=== PATIENT | male | born 1950 | race Caucasian/White ===

== ENCOUNTER 2019-08-20 15:47 | Emergency (ER) | payer OTHER, SELFPAY ==
[2019-08-20 15:53] VITALS: BP 142/92; PULSE 70; RESP 18; TEMP 36.9; O2SAT 100
--- NOTE | 2019-08-20 16:24 | ED.URI ---
HPI - URI/Sore Throat General Chief Complaint: Upper Respiratory Infection Stated Complaint: COLD/FLU Time Seen by Provider: 08/20/19 16:12 Source: patient Mode of arrival: ambulatory Limitations: no limitations History of Present Illness HPI Narrative: 69-year-old male presents for evaluation of symptoms that have been present for 6 days. He reports initial rhinorrhea, congestion, dry cough, body aches, sore throat. He reports over the last few days his congestion, facial pressure and pain has worsened. He reports cough is dry, nonproductive and has not keeping him up at night. He denies any fever. He denies any wheezing, shortness of breath, chest pain, rash, abnormal swelling. He is used Advil, Coricidin for his symptoms. He reports frequent sinus inflammation. No previous sinus surgery. Exposed to family members with influenza. Did not get a flu shot this season. History of hypertension, hypercholesterolemia, cardiac stents, A. fib. Related Data Home Medications Medication Instructions Recorded Confirmed amlodipine 5 mg tablet 5 mg PO DAILY 05/26/19 08/20/19 aspirin 81 mg tablet,delayed 81 mg PO DAILY 05/26/19 08/20/19 release atorvastatin 40 mg tablet 40 mg PO DAILY 05/26/19 08/20/19 cholecalciferol (vitamin D3) 25 2,000 unit PO DAILY cap 05/26/19 08/20/19 mcg (1,000 unit) capsule ramipril 10 mg capsule 10 mg PO BID 05/26/19 08/20/19 allopurinol 300 mg PO DAILY 08/20/19 08/20/19 apixaban [Eliquis] 5 mg PO BID 08/20/19 08/20/19 Allergies Allergy/AdvReac Type Severity Reaction Status Date / Time No Known Allergies Allergy Verified 08/20/19 16:04 Review of Systems Review of Systems: Narrative: CONSTITUTIONAL: Denies fever, chills, weight loss, or sweats. EYES: Denies visual changes, redness, or discharge. ENT: Reports rhinorrhea, congestion, sore throat, facial pressure and pain. Denies otalgia. CARDIOVASCULAR: Denies chest pain, palpitations, or edema. RESPIRATORY: Denies dyspnea, wheezing. Reports cough GASTROINTESTINAL: Denies abdominal pain, nausea, vomiting, or diarrhea. GENITOURINARY: Denies dysuria, hematuria, urinary frequency, malordous urine SKIN: Denies rash or itching. MUSCULOSKELETAL: Denies back pain, joint pain, swelling. Reports myalgias. NEUROLOGIC: Denies headache, numbness, or weakness. All systems reviewed & are unremarkable except as noted in HPI and below PMFSH Family History Family History (Updated 02/19/17 @ 12:42 by DOCTOR UNKNOWN) Sibling Family history of cardiovascular disease Carcinoma of colon Mother Family history of cardiovascular disease, Onset Age: 92 Social History Social History Smoking status: Never smoker Alcohol intake: current Comments At the time of my signature, I agree with nursing past medical, surgical, social and family history. There is no relevant family history pertinent to the presenting complaint. Exam Narrative: Exam Narrative: GENERAL: No distress, well appearing, well nourished, alert and calm HEAD: Normocephalic, atraumatic. Bilateral maxillary sinus tenderness noted EYES: Pupils equal, round. Extraocular movements intact. Conjunctivae without redness or drainage. EARS: Tympanic membranes without erythema. TM landmarks intact with good light reflex. Ear canals without discharge. NOSE: Nares patent. Nasal turbinates erythematous and inflamed, yellow nasal discharge MOUTH: Mucous membranes moist. No lesions. No cyanosis. Dentition grossly normal. THROAT: Oropharynx without signs erythema, exudates or lesions. Tonsils not enlarged. NECK: Supple. No lymphadenopathy. RESPIRATORY: Airway patent. Chest clear to auscultation bilaterally. Breath sounds equal bilaterally. No retractions. CARDIOVASCULAR: Regular rate and rhythm. Capillary refill <2 seconds. SKIN: Color normal. Warm and dry. No rashes. NEURO: Alert. Motor intact in all extremities. Muscle tone normal. Course Vital Signs Vital signs: Vital Signs T
== END 2019-08-20 16:39 | disposition home or self-care (01) ==
PROVIDERS: Emergency Provider Nurse Practitioner; PCP Emergency Medicine
DX: J32.9 Chronic sinusitis, unspecified (principal); I48.91 Unspecified atrial fibrillation; E78.00 Pure hypercholesterolemia, unspecified; Z95.5 Presence of coronary angioplasty implant and graft; M10.9 Gout, unspecified; I10 Essential (primary) hypertension
CPT/HCPCS: 87804; 99213; G0463

== ENCOUNTER 2019-12-18 01:00 | Emergency (ER) | payer OTHER, SELFPAY ==
--- NOTE | ~2019-12-18 | XR_ITS ---
EXAMINATION: XR chest 2V DATE: 12/18/2019 02:59 INDICATION: Shortness of breath. TECHNIQUE: Frontal and lateral views of the chest were obtained. COMPARISON: Chest 2 views 01/02/2018 FINDINGS: The chest demonstrates clear lungs without pneumonia, pleural effusion, or pneumothorax. Th e heart size is normal. IMPRESSION: 1. No acute cardiopulmonary disease. Reviewed, dictated and finalized at location A.
--- NOTE | ~2019-12-18 | CT_ITS ---
EXAMINATION: CT brain wo con DATE: 12/18/2019 03:08 INDICATION: Left lower extremity numbness and tingling. TECHNIQUE: Computed tomography (CT) of the head was performed without intravenous contrast. The mA wa s adjusted according to patient size. Iterative reconstruction technique was employed. The dose-lengt h product was 681.00 mGy-cm. COMPARISON: Head CT 05/15/2010 FINDINGS: There are scattered areas of low attenuation in the cerebral white matter, which is within normal limits for the patient's age. There is no intracranial hemorrhage, acute infarction, or abnorm al intracranial mass lesion. The ventricles are normal in size. There is mild mucosal thickening in t he ethmoid sinuses. The orbits are normal. The mastoid air cells are normal. IMPRESSION: 1. Normal aging brain. Reviewed, dictated and finalized at location A. IMPRESSION: 1. Normal aging brain.
[2019-12-18 01:16] VITALS: BP 187/116; PULSE 110; RESP 19; TEMP 36.4; O2SAT 94
[2019-12-18] MEDS: SODIUM CHLORIDE 0.9% IV 1,000 ML 999 ML IV CONT (01:20)
[2019-12-18 02:18] VITALS: BP 165/104; PULSE 98; RESP 20; O2SAT 97
[2019-12-18 02:40] VITALS: BP 171/103; PULSE 96; RESP 20; TEMP 36.3; O2SAT 95
--- NOTE | 2019-12-18 02:57 | ED.GENADULT ---
HPI - General Adult General Chief complaint: Back Pain/Injury Time Seen by Provider: 12/18/19 02:52 Source: patient and family Mode of arrival: ambulatory Limitations: no limitations History of Present Illness HPI narrative: Patient is a 69-year-old male who presented for evaluation of palpitations. 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 Patient denies chest pain, shortness of breath. He reports feeling slightly shaky. He reports a numb type feeling in his left leg which lasted for about 10 minutes and is now gone. No weakness in the leg or difficulty walking. No speech changes, facial droop, arm numbness. Patient states otherwise he feels well. Patient is compliant with his anticoagulation, taking Eliquis. No recent changes to his medications. No history of thyroid disorder. No recent nausea, vomiting or diarrhea. Related Data Home Medications Medication Instructions Recorded Confirmed amlodipine 5 mg tablet 5 mg PO DAILY 05/26/19 08/20/19 aspirin 81 mg tablet,delayed 81 mg PO DAILY 05/26/19 08/20/19 release atorvastatin 40 mg tablet 40 mg PO DAILY 05/26/19 08/20/19 cholecalciferol (vitamin D3) 25 2,000 unit PO DAILY cap 05/26/19 08/20/19 mcg (1,000 unit) capsule ramipril 10 mg capsule 10 mg PO BID 05/26/19 08/20/19 allopurinol 300 mg PO DAILY 08/20/19 08/20/19 apixaban [Eliquis] 5 mg PO BID 08/20/19 08/20/19 Allergies Allergy/AdvReac Type Severity Reaction Status Date / Time No Known Allergies Allergy Verified 08/20/19 16:04 Review of Systems Review of Systems: Narrative: CONSTITUTIONAL: Denies fever, chills, or sweats. EYES: Denies visual changes ENT: Denies rhinorrhea, congestion, sore throat, or otalgia. CARDIOVASCULAR: Denies chest pain, reports palpitations, denies edema RESPIRATORY: Denies cough or dyspnea. GASTROINTESTINAL: Denies abdominal pain, nausea, vomiting, or diarrhea. GENITOURINARY: Denies dysuria or hematuria. SKIN: Denies rash or itching. MUSCULOSKELETAL: Denies back pain, joint pain, or myalgia. NEUROLOGIC: Denies headache, numbness, or weakness. [facility] Past Medical History Medical History Afib ASHD (arteriosclerotic heart disease) HLD (hyperlipidemia) Family History Family History (Updated 02/19/17 @ 12:42 by DOCTOR UNKNOWN) Sibling Family history of cardiovascular disease Carcinoma of colon Mother Family history of cardiovascular disease, Onset Age: 92 Social History Social History Smoking status: Never smoker Alcohol intake: current Exam Narrative: Exam Narrative: GENERAL: Awake, alert, conversant HEAD: Normocephalic, atraumatic. EYES: PERRLA and EOMI. ENT: Nares clear, no rhinorrhea or epistaxis. Mucous membranes moist. NECK: Supple. CHEST: No respiratory distress, breathing even and non labored HEART: Atrial fibrillation, tachycardic, rate 110s ABDOMEN:Non distended, non tender EXTREMITIES: Normal range of motion. No edema. Radial pulses 2+. SKIN: Warm, dry, no rash. NEURO:No focal deficits. Alert and oriented x3. EOMs intact without nystagmus. No facial droop/asymmetry noted bilaterally. Grimace intact. Intact sensation in face. Hearing intact bilaterally. Shoulder shrug intact. Strength 5/5 bilateral upper extremities. Strength 5/5 bilateral lower extremities. Reflexes 2+ upper and lower extremities. Ambulatory with a narrow base, steady gait, no ataxia. Medical Decision Making MDM Narrative Medical decision making narrative: Patient presented for evaluation of palpitations. At the time of assessment, ABCs are intact and vital signs are stable. Patient does have atrial fibrillation, rate is anywhere from 100s to 1 teens, patient took additional
[2019-12-18 03:17] LABS: Basophils Percent Auto 0.6 % (0.2-1.2); Eosinophils Absolute Auto 0.5 K/mm3 (0-0.3); Eosinophils Percent Auto 6.8 % (0-4.4); Hematocrit 48.1 % (42.0-52.0); Hemoglobin 16.3 g/dL (14.0-18.0); Immature Granulocyte Absolute 0.02 K/mm3 (0.00-0.031); Immature Granulocyte Percent A 0.3 % (0-0.5); Lymphocytes Absolute Auto 2.51 K/mm3 (0.9-3.2); Mean Corpuscular HGB Conc 33.9 g/dl (32-36); Mean Corpuscular Hemoglobin 29.7 pg (26-34); Mean Corpuscular Volume 87.6 fl (80-100); Monocytes Absolute Auto 0.7 K/mm3 (0.1-0.6); Monocytes Percent Auto 10.6 % (2.6-8.5); Neutrophils Absolute Auto 2.9 K/mm3 (1.3-6.7); Neutrophils Percent Auto 43.7 % (45.5-73.1); Platelet Count Result 249 k/mm3 (150-375); Red Blood Count 5.49 M/mm3 (4.6-6.20); Red Cell Distribution Width 12.7 % (11.5-14.5); White Blood Count 6.6 K/mm3 (4.5-10.0)
[2019-12-18 03:19] LABS: Blood Urea Nitrogen 18 mg/dL (9-20); Calcium 11.7 mg/dL (8.4-10.2); Carbon Dioxide 26 mmol/L (22-30); Chloride 105 mmol/L (98-107); Estimated Glomerular Filt Rate > 60; Glucose 108 mg/dL (75-110); INR 1.1; Prothrombin Time 14.1 Seconds (11.1-14.7); Sodium 139 mmol/L (137-145); Troponin I < 0.012 ng/mL (0.000-0.034)
--- NOTE | 2019-12-18 03:33 | ECG_ITS ---
Measurements Intervals [place] Rate: 121 P: [place]: 366 QRS: -66 QRSD: 130 T: 6 QT: 322 QTc: 459 Interpretive Statements ATRIAL FIBRILLATION WITH RAPID VENTRICULAR RATE VENTRICULAR PREMATURE COMPLEXES INCOMPLETE RIGHT BUNDLE BRANCH BLOCK LEFT ANTERIOR FASCICULAR BLOCK BASELINE ARTIFACT- I, II, III, AVR, AVL, AVF ABNORMAL ECG Electronically Signed On 12-18-2019 7:42:07 CDT by Alban Rowan D.O.
--- NOTE | 2019-12-18 03:42 | PC.NURSE ---
Original patient charting done on paper charts. Documentation copied and placed in [facility].
== END 2019-12-18 03:00 | disposition home or self-care (01) ==
PROVIDERS: Emergency Provider Emergency Medicine; PCP Emergency Medicine
DX: R00.2 Palpitations (principal); E83.52 Hypercalcemia; I48.20 Chronic atrial fibrillation, unspecified; I25.10 Atherosclerotic heart disease of native coronary artery without angina pectoris; E78.5 Hyperlipidemia, unspecified; Z79.82 Long term (current) use of aspirin; Z79.01 Long term (current) use of anticoagulants; I49.3 Ventricular premature depolarization; I45.2 Bifascicular block
CPT/HCPCS: 36415; 70450; 71046; 80048; 84484; 85025; 85610; 85730; 93005; 96360; 99284; J7030

== ENCOUNTER 2020-08-24 17:48 | Emergency (ER) | payer OTHER, SELFPAY ==
--- NOTE | 2020-08-24 17:51 | PC.NURSE ---
Pt to intake c/o dog bite to left upper arm. Note approx 2cm x2 cm open area. No active bleeding noted. Explained visitor policy while in waiting room. Pt looks around, asks if busy, explained that the department is very busy but that staff has admissions and are trying to get people moving. Pt states can an urgent care take care of this? What are their hours? explained the clinics are usually open till 8pm, but uncertain if they would see a dog bite or send back over here. Pt states well, all I need is a tetanus shot and clean it out . Explained that it's not certain what will be done. Also explained to patient that he's more than welcome to stay here as well. State well, I'll come back if they can't do it .
== END 2020-08-24 17:55 | disposition left against medical advice (07) ==
LOC: ANHED 18:03
PROVIDERS: PCP Emergency Medicine
DX: Z53.21 Procedure and treatment not carried out due to patient leaving prior to being seen by health care provider (principal)
CPT/HCPCS: 99199

== ENCOUNTER 2022-08-08 09:24 | Emergency (ER) | payer OTHER, SELFPAY ==
--- NOTE | ~2022-08-08 | XR_ITS ---
Lumbosacral Spine: AP and lateral views Clinical History: Pain Findings: The normal lordotic curve is maintained. The vertebral bodies and posterior elements are i ntact. The intervertebral disc spaces are preserved. There is advanced facet arthropathy at L5-S1. T he sacroiliac joints are normally outlined. Impression: Advanced facet arthropathy at L5-S1. Reviewed, dictated and finalized at location . [facility] Impression: Advanced facet arthropathy at L5-S1.
--- NOTE | 2022-08-08 09:29 | ED.BACK ---
HPI - Back Pain/Injury General Chief Complaint: Back Pain/Injury Stated Complaint: BACK PAIN Time Seen by Provider: 08/08/22 09:29 Source: patient and RN notes reviewed History of Present Illness HPI Narrative: Patient is a 72-year-old male who presents to urgent care with complaints of lumbar low back pain. Patient states that it started approximately 2 weeks ago after working in his chimney. Patient states that he did have a pain approximately 30 minutes after he was working in the chimney which worsened for a few days afterwards. Patient states by last Saturday he was feeling much better and did have 5-1/2 mi walk outside. Patient states that he has had back pain in the past which has been consistent with sciatica. He states that this pain is much different and does not have any radiation. Patient states it is mostly exacerbated when going from sitting to standing position or any type of bending motion. Patient has been taking Tylenol and ibuprofen for the pain. Denies any known trauma or injury. No other acute complaints. No acute distress noted. Patient aware of the plan care. Some parts of this dictation were generated by voice recognition software and may contain typographical and/or grammatical inaccuracies. Related Data Home Medications Medication Instructions Recorded Confirmed apixaban 5 mg tablet (Eliquis) 5 mg PO BID 08/20/19 08/08/22 amlodipine 10 mg tablet 10 mg PO DAILY 08/23/21 08/08/22 atorvastatin 40 mg tablet See Rx Instructions .Route .COMPLEX 08/23/21 08/08/22 metoprolol tartrate 25 mg tablet See Rx Instructions .Route .COMPLEX 08/23/21 08/08/22 allopurinol 300 mg tablet 300 mg PO DAILY 08/08/22 08/08/22 Allergies Allergy/AdvReac Type Severity Reaction Status Date / Time No Known Allergies Allergy Verified 08/08/22 09:40 Review of Systems Review of Systems: CONSTITUTIONAL: Denies fever, chills, or sweats. EYES: Denies visual changes, redness, or discharge. ENT: Denies rhinorrhea, congestion, sore throat, or otalgia. CARDIOVASCULAR: Denies chest pain, palpitations, or edema. RESPIRATORY: Denies cough or dyspnea. GASTROINTESTINAL: Denies abdominal pain, nausea, vomiting, or diarrhea. GENITOURINARY: Denies dysuria or hematuria. SKIN: Denies rash or itching. MUSCULOSKELETAL: Reports of low back pain NEUROLOGIC: Denies headache, numbness, or weakness. All other systems reviewed are negative, except as documented in HPI. [facility] Past Medical History Medical History Acute pain of left knee Afib ASHD (arteriosclerotic heart disease) Atrial fibrillation with controlled ventricular rate Atypical mole Body mass index [BMI] 25.0-25.9, adult (02/21/17) Body mass index [BMI] 26.0-26.9, adult (08/16/16) Elevated alkaline phosphatase level HLD (hyperlipidemia) HTN (hypertension), benign Hypercalcemia Hyperglycemia Pain of left heel Patient had no falls in past year Prepatellar bursitis, right knee Seasonal allergies Vitamin D deficiency Surgical History Surgical History Hx of heart artery stent Family History Family History Sibling Family history of cardiovascular disease Carcinoma of colon Mother Family history of cardiovascular disease, Onset Age: 92 Social History Social History Smoking status: Former smoker Second hand tobacco smoke exposure: No Alcohol intake: current Substance use: never Substance use type: does not use Living arrangements: with family Gender identity (if verbalized by the patient): Male Spiritual care concerns: No Agree to blood products: Yes Comments At the time of my signature, I reviewed and agree with the nursing past medical, surgical, social, and family history. There is no relevant family history pertinent to th
[2022-08-08 09:32] VITALS: BP 161/90; PULSE 77; RESP 16; TEMP 36.6; O2SAT 100
== END 2022-08-08 10:20 | disposition home or self-care (01) ==
PROVIDERS: Emergency Provider Nurse Practitioner Family; PCP Emergency Medicine
DX: S39.012A Strain of muscle, fascia and tendon of lower back, initial encounter (principal); I10 Essential (primary) hypertension; E78.5 Hyperlipidemia, unspecified; I48.91 Unspecified atrial fibrillation; Z79.01 Long term (current) use of anticoagulants; Z87.891 Personal history of nicotine dependence; X58.XXXA Exposure to other specified factors, initial encounter
CPT/HCPCS: 72100; 81003; 99213; G0463

== ENCOUNTER 2023-07-23 02:06 | Day surgery (SDC) | payer OTHER, SELFPAY ==
[2023-07-03 15:19] VITALS: BMI 25.8
--- NOTE | 2023-07-19 13:14 | SUR.PREOP ---
Patient called regarding upcoming procedure. Reviewed preop instructions, appointment times, and procedure prep.
[2023-07-23 07:43] VITALS: BP 136/92; PULSE 62; RESP 18; TEMP 36.2; O2SAT 100
--- NOTE | 2023-07-23 08:05 | WPDANESEPPF ---
Anes - Initial Pre Proc Eval Procedure: Operation Date: 07/23/23 09:00 Proposed Procedures p Screening Colonoscopy - Ammon Lopez MD Date/Time: 07/23/23 08:05 Surgeon: Ammon Lopez MD Pre Op Diagnosis: neoplasm screening Patient Data Age: 73 Gender: M Height: 1.83 m Weight: 87.4 kg Last Vital Signs Temp 97.1 F L 07/23/23 07:43 Pulse 62 07/23/23 07:43 Resp 18 07/23/23 07:43 BP 136/92 H 07/23/23 07:43 Pulse Ox 100 07/23/23 07:43 O2 Del Method Room Air 07/23/23 07:43 Allergies Allergy/AdvReac Type Severity Reaction Status Date / Time No Known Allergies Allergy Verified 07/23/23 07:41 Home Medications Medication Instructions Recorded Confirmed Type apixaban 5 mg tablet (Eliquis) 5 mg PO BID 08/20/19 07/23/23 History cholecalciferol (vitamin D3) 25 2,000 unit PO DAILY #90 caps 02/22/21 07/23/23 Rx mcg (1,000 unit) capsule amlodipine 10 mg tablet 10 mg PO DAILY 08/23/21 07/23/23 History ibuprofen 800 mg tablet 800 mg PO TID PRN pain #60 tabs 08/08/22 07/23/23 Rx carvedilol 6.25 mg tablet (Coreg) 6.25 mg PO BID 03/07/23 07/23/23 History ramipril 10 mg capsule See Rx Instructions .Route 06/18/23 07/23/23 Rx .COMPLEX #180 caps allopurinol 300 mg tablet 300 mg PO DAILY 07/03/23 07/23/23 History atorvastatin 20 mg tablet 20 mg PO DAILY 07/03/23 07/23/23 History Patient hx anesthesia problems: none Family hx anesthesia problems: none Results Review: All pre-operative results and documents have been reviewed as part of the pre-operative evaluation. [facility] Past Medical History Medical History Acute pain of left knee Afib ASHD (arteriosclerotic heart disease) Atrial fibrillation with controlled ventricular rate Atypical mole Body mass index [BMI] 25.0-25.9, adult (02/21/17) Body mass index [BMI] 26.0-26.9, adult (08/16/16) Elevated alkaline phosphatase level HLD (hyperlipidemia) HTN (hypertension), benign Hypercalcemia Hyperglycemia Pain of left heel Patient had no falls in past year Prepatellar bursitis, right knee Seasonal allergies Vitamin D deficiency Surgical History Surgical History Hx of heart artery stent Family History Family History Sibling Family history of cardiovascular disease Carcinoma of colon Mother Family history of cardiovascular disease, Onset Age: 92 Social History Social History Smoking status: Never smoker Second hand tobacco smoke exposure: No Alcohol intake: current Drinks per week: 3 Substance use: never Substance use type: does not use Living arrangements: with family Gender identity (if verbalized by the patient): Male Spiritual care concerns: No Agree to blood products: Yes Anes - Eval Final PreProcedure Day of Procedure 07/23/23 08:05 Patient weight: normal Heart: irregular rhythm Lungs: clear to auscultation Neurological: alert and oriented Last oral intake: >/= 8 hours Emergent: no Anesthetic plan: proceed Anesthesia type and monitoring: general GIVS and standard monitoring Results Review: All pre-operative results and documents have been reviewed as part of the pre-operative evaluation. Informed Consent: The patient's anesthetic plan and its attendant risks and benefits were discussed with the patient/family/POA. Questions were solicited and answers provided to the satisfaction of the patient/family/POA.
[2023-07-23] MEDS: LACTATED RINGERS 1,000 ML 150 ML IV CONT (08:10)
--- NOTE | 2023-07-23 08:51 | PM.HPGS ---
History of Present Illness History of Present Illness Consent: Risks, benefits, and alternatives have been discussed and questions answered. Patient agrees to proceed with procedure. Chief complaint: neoplasm screening Narrative: Hayden Vyas is a 73 year old male with at least 4 previous colonoscopies, last one 2014 Review of Systems Constitutional: Constitutional: Denies headache(s) and Denies weakness Eyes: Eyes: Denies blurry vision ENT: Reports Normal hearing present, Denies headache(s) and Denies neck pain Cardiovascular: Cardiovascular: Denies chest pain and Denies dyspnea Respiratory: Respiratory: Denies dyspnea Gastrointestinal: Gastrointestinal: Reports no additional gastrointestinal complaints Genitourinary: Genitourinary: Denies dysuria Musculoskeletal: Musculoskeletal: Denies neck pain Integumentary/Breasts: Skin/Breast: Denies dry skin Neurologic: Reports Normal hearing present, Denies headache(s) and Denies weakness Psychiatric: Psychiatric: Denies anxiety Endocrine: Endocrine: Denies change in body appearance Hematologic/Lymphatic: Hematologic/Lymphatic: Denies easy bleeding Allergic/Immunologic: Allergic/Immunologic: Denies urticaria PMFSH Past Medical History Medical History (Updated 07/23/23 @ 08:52 by Ammon Lopez MD) Acute pain of left knee Afib ASHD (arteriosclerotic heart disease) Atrial fibrillation with controlled ventricular rate Atypical mole Body mass index [BMI] 25.0-25.9, adult (02/21/17) Body mass index [BMI] 26.0-26.9, adult (08/16/16) Colon cancer screening Elevated alkaline phosphatase level HLD (hyperlipidemia) HTN (hypertension), benign Hypercalcemia Hyperglycemia Pain of left heel Patient had no falls in past year Prepatellar bursitis, right knee Seasonal allergies Vitamin D deficiency Surgical History Surgical History Hx of heart artery stent Family History Family History Sibling Family history of cardiovascular disease Carcinoma of colon Mother Family history of cardiovascular disease, Onset Age: 92 Social History Social History Smoking status: Never smoker Second hand tobacco smoke exposure: No Alcohol intake: current Drinks per week: 3 Substance use: never Substance use type: does not use Living arrangements: with family Gender identity (if verbalized by the patient): Male Spiritual care concerns: No Agree to blood products: Yes Meds Home Medications and Allergies Home Medications Medication Instructions Recorded Confirmed Type apixaban 5 mg tablet (Eliquis) 5 mg PO BID 08/20/19 07/23/23 History cholecalciferol (vitamin D3) 25 2,000 unit PO DAILY #90 caps 02/22/21 07/23/23 Rx mcg (1,000 unit) capsule amlodipine 10 mg tablet 10 mg PO DAILY 08/23/21 07/23/23 History ibuprofen 800 mg tablet 800 mg PO TID PRN pain #60 tabs 08/08/22 07/23/23 Rx carvedilol 6.25 mg tablet (Coreg) 6.25 mg PO BID 03/07/23 07/23/23 History ramipril 10 mg capsule See Rx Instructions .Route 06/18/23 07/23/23 Rx .COMPLEX #180 caps allopurinol 300 mg tablet 300 mg PO DAILY 07/03/23 07/23/23 History atorvastatin 20 mg tablet 20 mg PO DAILY 07/03/23 07/23/23 History Allergies Allergy/AdvReac Type Severity Reaction Status Date / Time No Known Allergies Allergy Verified 07/23/23 07:41 Vital Signs Vital Signs - 24 hr 07/23/23 07:43 Temperature 97.1 F L Pulse Rate 62 Respiratory Rate 18 Blood Pressure 136/92 H Pulse Oximetry 100 Oxygen Delivery Room Air Exam Const: General: comfortable and no acute distress HENMT: Face/Nose/Sinus: Normal nares present Eyes: General: appearance normal, both eyes and all related structures Neck: Neck: no JVD Resp: Auscultation: clear to auscultation bilaterally Cardio: Rate: r
[2023-07-23 09:19] VITALS: BP 104/64; PULSE 56; RESP 18; O2SAT 96
[2023-07-23 09:29] VITALS: BP 106/66; PULSE 54; RESP 17; O2SAT 96
[2023-07-23 09:36] VITALS: BP 126/75; PULSE 64; RESP 17; O2SAT 100
== END 2023-07-23 09:46 | disposition home or self-care (01) ==
PROVIDERS: PCP Emergency Medicine; Visit Provider Internal Medicine Gastroenterology
PROC: 0DJD8ZZ Inspection of Lower Intestinal Tract, Via Natural or Artificial Opening Endoscopic (ICD-10-PCS; CPT 45378; principal; 2023-07-23 09:00)
DX: Z12.11 Encounter for screening for malignant neoplasm of colon (principal); D12.3 Benign neoplasm of transverse colon; K57.30 Diverticulosis of large intestine without perforation or abscess without bleeding; K64.8 Other hemorrhoids; I48.91 Unspecified atrial fibrillation; E78.5 Hyperlipidemia, unspecified; E55.9 Vitamin D deficiency, unspecified; Z79.01 Long term (current) use of anticoagulants; Z95.5 Presence of coronary angioplasty implant and graft
CPT/HCPCS: 45385; 88305; J2704; J7120